=== PATIENT | male | born 1960 | race Two or more races ===

== ENCOUNTER 2020-07-21 04:54 | Day surgery (SDC) | payer OTHER ==
[~2020-07-21 04:54] MED LIST: CIALIS5 MG PO; FENOFIBRATE145 MG PO
[2020-07-21] MEDS ORDERED: PERCOCET 5-3251 EACH PO (11:22)
[2020-07-21] MEDS ORDERED: KEFLEX750 MG PO (11:23)
== END 2020-07-21 16:45 | disposition home or self-care (01) ==
LOC: CIR.AMB 04:54
PROVIDERS: ATTEND Surgery
DX: N48.6 Induration penis plastica (principal); Z20.822 Contact with and (suspected) exposure to COVID-19